=== PATIENT | male | born 1965 | race Caucasian/White ===

== ENCOUNTER 2021-11-28 12:49 | Emergency (ER) | payer SELFPAY ==
[2021-11-28 13:17] VITALS: BP 173/70; PULSE 51; RESP 16; TEMP 36.4; O2SAT 99
[2021-11-28 14:17] LABS: Basophils % 0.2 %; Hematocrit 48.7 % (42.0-52.0); Hemoglobin 15.9 g/dL (11.7-16.6); Lymphocytes # 1.2 10^3/uL (0.8-4.8); Lymphocytes % 10.1 %; Mean Corpuscular HGB Conc 32.6 g/dL (30.0-36.0); Mean Corpuscular Hemoglobin 30.3 pg (28.0-34.0); Mean Corpuscular Volume 92.9 fl (80-94); Mean Platelet Volume 11.8 fL (7.4-10.4); Monocytes # 0.7 10^3/uL (0.2-0.9); Monocytes % 5.4 %; Neutrophils # 10.16 10^3/uL (1.8-7.7); Neutrophils % 84.1 %; Nucleated Red Blood Cells % 0 %; Platelet Count 313 10^3/cmm (130-400); Red Blood Count 5.24 10^6/uL (4.1-5.3); White Blood Count 12.1 10^3/uL (4.0-10.0)
[2021-11-28] MEDS: sodium chloride 0.9% 1,000 ML 999 ML IV (14:27)
[2021-11-28] MEDS: ondansetron 2 mg/ML SDV 2 mL 4 MG IVP (14:35)
[2021-11-28 14:45] LABS: Alanine Aminotransferase 16 U/L (0-41); Albumin Level 4.5 g/dL (3.5-5.2); Alkaline Phosphatase 58 U/L (40-130); Anion Gap 18.8 (5-19); Aspartate Amino Transferase 19 U/L (0-40); Blood Urea Nitrogen 11 mg/dL (6-20); Calcium 9.9 mg/dL (8.5-10.5); Carbon Dioxide 22 mmol/L (22-29); Chloride 101 mmol/L (98-107); Globulin 3.7 g/dL (1.3-4.6); Glomerular Filtration Rate 77.9 mL/min (90-130); Glucose 141 mg/dL (65-115); Lipase 21 U/L (13-60); Osmolality Calculated 288 mOsm/kg (285-295); Potassium 3.8 mmol/L (3.5-5.1); Sodium 138 mmol/L (136-145); Total Bilirubin 1.5 mg/dL (0.15-1.2); Total Protein 8.2 g/dL (6.6-8.7)
[2021-11-28 15:02] VITALS: BP 167/83; PULSE 50; RESP 16; TEMP 36.6; O2SAT 99
--- NOTE | 2021-11-28 15:05 | CTR_ITS ---
PROCEDURE INFORMATION: Exam: CT Abdomen And Pelvis With Contrast Exam date and time: 11/28/2021 3:30 PM Age: 55 years old Clinical indication: Nausea and vomiting; Abdominal pain; Additional info: Pn TECHNIQUE: Imaging protocol: Computed tomography of the abdomen and pelvis with contrast. Radiation optimization: All CT scans at this facility use at least one of these dose optimization techniques: automated exposure control; mA and/or kV adjustment per patient size (includes targeted exams where dose is matched to clinical indication); or iterative reconstruction. Contrast material: OMNI 350; Contrast volume: 80 ml; Contrast route: INTRAVENOUS (IV); COMPARISON: CR XR acute abdomen series [id number] 02/22/2016 9:02 PM RADIATION DOSE METRICS: Total DLP (mGy-cm): 870.23 FINDINGS: Liver: Findings consistent with fatty infiltration of the liver are identified. Gallbladder and bile ducts: Normal. No calcified stones. No ductal dilation. Pancreas: Normal. No ductal dilation. Spleen: Normal. No splenomegaly. Adrenal glands: Normal. No mass. Kidneys and ureters: Normal. No hydronephrosis. Stomach and bowel: Colonic diverticula are present although there are no CT findings to suggest diverticulitis. No bowel obstruction or wall thickening. Appendix: The appendix is visualized and appears normal. Intraperitoneal space: Unremarkable. No free air. No significant fluid collection. Vasculature: Unremarkable. No abdominal aortic aneurysm. Lymph nodes: Unremarkable. No enlarged lymph nodes. Urinary bladder: Unremarkable as visualized. Reproductive: Unremarkable as visualized. Bones/joints: Degenerative change is identified in the spine. There is no evidence for acute fracture or malalignment. Soft tissues: Unremarkable. CT/CT abdomen pelvis w con* [id number] IMPRESSION: There are no acute concerning abnormalities.
[2021-11-28] MEDS: haloperidol inj 5 mg/mL INJ 1 mL IVP (15:12)
[2021-11-28 17:02] VITALS: BP 173/81; PULSE 53; RESP 17; O2SAT 96
[2021-11-28 17:44] LABS: Add Urine Microscopic? YES; Bilirubin Urine Neg (Negative); Blood Urine Neg (Negative); Glucose Urine UA Norm (Normal); Ketones Urine 1+ (Negative); Leukocyte Esterase Urine Negative (Negative); Nitrate Urine Negative (Negative); Protein Urine Trace (Negative); Specific Gravity, Urine 1.005 (1.005-1.030); Urine Appearance Clear (CLEAR); Urine Color Straw (Yellow); Urobilinogen Urine Norm (Negative); pH Urine 5 (5-7)
[2021-11-28 17:45] LABS: Add Urine Culture? No; Bacteria Urine TRACE /hpf
[2021-11-28 18:13] VITALS: BP 153/81; PULSE 56; RESP 16; O2SAT 99
--- NOTE | 2021-11-29 01:05 | ED_ITS ---
HPI - Nausea/Vomiting/Diarrhea General: Chief complaint: Nausea/Vomiting/Diarrhea Stated complaint: possible food poisoning Time Seen by Provider: 11/28/21 13:53 History of Present Illness: 55-year-old male patient presents to the emergency department complaining of nausea vomiting and abdominal cramping. Patient states this started this a.m. Patient states that he believes he has food poisoning. Patient denies any back pain. Patient denies any chest pain or shortness of breath. Patient denies any fever. Patient denies any urinary symptoms. Associated symtoms: Denies anxiety, change in vision, chest pain, diaphoresis, dizziness, dysuria, fatigue, headache(s), malaise, palpitations, syncope or tinnitus Review of Systems Const: Denies: fever(s), chills, body aches, change in appetite, change in weight, fatigue, malaise or diaphoresis Eyes: Denies: change in vision, blurry vision, blind spots, photophobia, eye discomfort, eye discharge, eye redness, floaters or seeing flashes ENMT: Denies: throat pain, uvular edema, enlarged tonsils, odynophagia, hoarseness, mouth pain, swelling of lips/tongue, oral sores, bleeding gums, dental pain, dry mouth, ear or mastoid pain, ear discharge, change in hearing, tinnitus, disequilibrium, nasal discharge, nasal congestion, post nasal drip or sinus pain Card: Denies: chest pain, palpitations, irregular heart rhythm, edema, sw elling of feet/ankles, lightheadedness, syncope, pre-syncope, dyspnea on exertion, orthopnea, leg pain with exertion or acrocyanosis Resp: Denies: dyspnea, productive cough, non-productive cough, wheezing, stridor, pain on inspiration, change in phlegm color, hemoptysis or chest congestion GI: Denies: hematemesis, dysphagia, diarrhea, constipation, GI cramping, change in bowel habits or rectal pain : Denies: flank pain, dysuria, urinary frequency, urinary urgency, urinary hesitancy or hematuria Musc: Denies: neck pain, back pain, extremity pain, extremity swelling, joint pain, joint swelling, joint redness, joint warmth or deformity Skin/Breast: Denies: rash, pruritus, erythema, sores, new lesions, changes in skin color or dry skin Neuro: Denies: headache(s), numbness in extremities, weakness in extremities, sensory changes, lack of coordination, difficulty walking, frequent falls, dizziness, vertigo, confusion, behavioral changes, Slurred speech present, difficulty communicating thoughts or seizure-like activity Psych: Denies: anxiety, depression, suicidal ideation or homicidal ideation Endo: Denies: polyuria, polydipsia, tired all the time, cold intolerance, excessive sweating, flushing, hot flashes or heat intolerance Himanshu/Lymph: Denies: easy bruising, easy bleeding, petechiae, purpura, enlarged lymph nodes or tender lymph nodes All/Imm: Denies: urticaria, throat swelling, tongue swelling, facial swelling, acute wheezing or itchy eyes Physical Exam Const: COMMON NORMALS: no acute distress, patient oriented x3, healthy appearing, alert and well nourished GENERAL APPEARANCE: cooperative, comfortable, well kempt and well developed; not ill appearing ORIENTATION/CONSCIOUSNESS: Yes awake, Yes oriented to person, Yes oriented to place and Yes oriented to time HENMT: COMMON NORMALS: normocephalic, atraumatic, hearing grossly normal bilaterally, external ears normal, EAC's normal, TM's normal bilaterally, Normal external nose present, Normal nasal mucous membranes and turbinates present and moist oral mucous membranes HEAD & SCALP: normal to inspection, normocephalic and atraumatic FACE & SINUS: normal facial exam, sinuses nontender and face symmetric NOSE: Normal external nose present, Normal nares present, Normal nasal mucous membranes and turbinates present, No nasal discharge present and Abnormal external nose present EXTERNAL EAR: Yes external ears normal and Yes mastoids normal EXTERNAL AUDITORY CANAL: EAC's normal TYMPANIC MEMBRANE: TM's normal bilaterally MOUTH: Normal oral and palatal mucosa present, lip normal, tongue normal and Normal salivary glands and ducts present THROAT: no uvular edema Eye: COMMON NORMALS: Equal, round and reactive pupils present, EOMs intact bilaterally, conjunctivae normal, no scleral icterus and no papilledema GENERAL EYE: appearance normal, both eyes and all related structures EYELID: eyelids normal CONJUNCTIVA: Yes conjunctivae normal SCLERA: sclerae normal CORNEA: Yes corneas normal PUPIL: Yes Equal, round and reactive pupils present DIRECT OPHTHALMOSCOPY: Yes no papilledema Neck/C-Spine: COMMON NORMALS: full ROM, no lymphadenopathy, supple, no meningeal signs, no JVD and Thyroid normal GENERAL: Yes normal visual inspection and Yes trachea midline THYROID: Thyroid normal CERVICAL SPINE: Yes cervical ROM normal Lymph: LYMPHATIC: no lymphadenopathy noted and no lymphedema noted Chest: COMMONS NORMALS: normal inspection of the chest and normal palpation of entire chest wall Resp: COMMON NORMALS: normal respiratory effort, No retractions, No use of accessory muscles and clear to auscultation bilaterally EFFORT & INSPECTION: Yes able to speak in complete sentences and Yes symmetric chest movement AUSCULTATION: clear to auscultation bilaterally Cardio: COMMON NORMALS: no JVD, regular rate and regular rhythm RATE: regular rate RHYTHM: regular rhythm GI: COMMON NORMALS: Normal to inspection, nondistended, normoactive bowel sounds present, Soft to palpation, non-tender, No hepatosplenomegaly present, no masses and no bruits INSPECTION: Yes normal to inspection AUSCULTATION: Yes normoactive bowel sounds PALPATION: Yes Soft to palpation and Yes No hepatosplenomegaly present PERCUSSION: normal to percussion RECTAL EXAM: Yes deferred : COMMON NORMALS: Yes no CVA tenderness BLADDER/KIDNEY EXAM: Yes no CVA tenderness Back/Pelvis: COMMON NORMALS: no CVA tenderness, thoracic and lumbar spine normal to inspection, no thoracic nor lumbar tenderness, thoraco-lumbar ROM normal and straight leg raise negative bilaterally THORACIC SPINE/UPPER BACK: Yes normal to inspection LUMBAR SPINE/LOWER BACK: Yes normal to inspection Extremity: COMMON NORMALS: normal to inspection, full ROM and capillary refill normal GENERAL: Yes normal exam except as noted Neuro: COMMON NORMALS: patient oriented x3, CN's II-XII intact bilaterally, moves all extremities, no focal motor deficits, no sensory deficits noted, deep tendon reflexes 2+ bilaterally and gait normal SENSORIUM/ORIENTATION: Yes alert, Yes oriented to person, Yes oriented to place and Yes oriented to time MENINGEAL SIGNS: Yes no meningeal signs CRANIAL NERVES: Yes CN normal except as noted SPEECH: speech normal GAIT: Yes Normal gait present SENSORY EXAM: Yes extremities MOTOR EXAM: 5/5 motor strength present throughout Psych: COMMON NORMALS: mental status grossly normal, Normal thought process present, cooperative, normal affect, speech normal, activity/motor behavior normal, denies hallucinations, denies homicidal ideation and denies suicidal ideation APPEARANCE: Yes grossly normal and Yes well kempt ATTITUDE: Yes calm ACTIVITY/MOTOR BEHAVIOR: Yes appropriate eye contact SPEECH: Yes normal speech THOUGHT PROCESS: Normal thought process present THOUGHT CONTENT: Yes Normal thought content present ATTENTION/CONCENTRATION: Yes attention grossly intact MEMORY/COGNITION: Yes memory grossly intact INSIGHT: Good insight present (Psych) JUDGEMENT: Good judgement present (Psych) Skin: COMMON NORMALS: no rashes or lesions noted, no wounds, turgor normal, no jaundice, no petechiae and no mottling GENERAL SKIN EXAM: no rashes or lesions noted and turgor normal Course Vital Signs: Vital signs: Vital Signs Temperature 97.9 F 11/28/21 15:02 Pulse Rate 56 L 11/28/21 18:13 Respiratory Rate 16 11/28/21 18:13 Blood Pressure 153/81 11/28/21 18:13 Pulse Oximetry 99 11/28/21 18:13 Oxygen Delivery Me thod 11/28/21 17:02 MDM - Nausea/Vomiting/Diarrhea Medical Decision Making Patient is well-appearing nontoxic and in no acute distress.55-year-old male patient presents to the emergency department complaining of nausea vomiting and abdominal cramping. Patient states this started this a.m. Patient states that he believes he has food poisoning. Patient denies any back pain. Patient denies any chest pain or shortness of breath. Patient denies any fever. Patient denies any urinary symptoms. Patient's abdomen is soft and nontender. Patient was given Zofran and Haldol and had resolution of symptoms. Patient was given 1 L of fluids. Patient states he feels much better and would like to go home at this time. I do not feel patient would benefit from any further emergent testing however I did discuss with patient follow-up with primary care physician as well as return precautions to the emergency department Lab Data : 11/28/21 14:11 11/28/21 14:11 Radiology Impressions Abdomen/Pelvis CT 11/28/21 15:05 IMPRESSION: There are no acute concerning abnormalities. Laboratory Results WBC 12.1 10^3/uL (4.0-10.0) H 11/28/21 14:11 RBC 5.24 10^6/uL (4.1-5.3) 11/28/21 14:11 Hgb 15.9 g/dL (11.7-16.6) 11/28/21 14:11 Hct 48.7 % (42.0-52.0) 11/28/21 14:11 MCV 92.9 fl (80-94) 11/28/21 14:11 MCH 30.3 pg (28.0-34.0) 11/28/21 14:11 MCHC 32.6 g/dL (30.0-36.0) 11/28/21 14:11 RDW 13.0 % (12.1-15.1) 11/28/21 14:11 Plt Count 313 10^3/cmm (130-400) 11/28/21 14:11 MPV 11.8 fL (7.4-10.4) H 11/28/21 14:11 Neut % (Auto) 84.1 % 11/28/21 14:11 Lymph % (Auto) 10.1 % 11/28/21 14:11 [place] % (Auto) 5.4 % 11/28/21 14:11 Eos % (Auto) 0.0 % 11/28/21 14:11 Baso % (Auto) 0.2 % 11/28/21 14:11 Neut # (Auto) 10.16 10^3/uL (1.8-7.7) H 11/28/21 14:11 Lymph # (Auto) 1.2 10^3/uL (0.8-4.8) 11/28/21 14:11 [place] # (Auto) 0.7 10^3/uL (0.2-0.9) 11/28/21 14:11 Eos # (Auto) 0.0 10^3/uL (0.0-0.8) 11/28/21 14:11 Baso # (Auto) 0.0 10^3/uL (0.0-0.1) 11/28/21 14:11 Nucleated RBC % (auto) 0 % 11/28/21 14:11 Nucleated RBCs # 0.0 /100WBC 11/28/21 14:11 Sodium 138 mmol/L (136-145) 11/28/21 14:11 Potassium 3.8 mmol/L (3.5-5.1) 11/28/21 14:11 Chloride 101 mmol/L (98-107) 11/28/21 14:11 Carbon Dioxide 22 mmol/L (22-29) 11/28/21 14:11 Anion Gap 18.8 (5-19) 11/28/21 14:11 BUN 11 mg/dL (6-20) 11/28/21 14:11 Creatinine 1.0 mg/dL (0.7-1.2) 11/28/21 14:11 GFR Calculation 77.9 mL/min (90-130) L 11/28/21 14:11 Glucose 141 mg/dL (65-115) H 11/28/21 14:11 Calculated Osmolality 288 mOsm/kg (285-295) 11/28/21 14:11 Calcium 9.9 mg/dL (8.5-10.5) 11/28/21 14:11 Total Bilirubin 1.5 mg/dL (0.15-1.2) H 11/28/21 14:11 AST 19 U/L (0-40) 11/28/21 14:11 ALT 16 U/L (0-41) 11/28/21 14:11 Alkaline Phosphatase 58 U/L (40-130) 11/28/21 14:11 Total Protein 8.2 g/dL (6.6-8.7) 11/28/21 14:11 Albumin 4.5 g/dL (3.5-5.2) 11/28/21 14:11 Globulin 3.7 g/dL (1.3-4.6) 11/28/21 14:11 Lipase 21 U/L (13-60) 11/28/21 14:11 Urine Color Straw (Yellow) 11/28/21 16:59 Urine Appearance Clear (CLEAR) 11/28/21 16:59 Urine pH 5 (5-7) 11/28/21 16:59 Ur Specific [place] 1.005 (1.005-1.030) 11/28/21 16:59 Urine Protein Trace (Negative) 11/28/21 16:59 Urine Glucose (UA) Norm (Normal) 11/28/21 16:59 Urine Ketones 1+ (Negative) H 11/28/21 16:59 Urine Blood Neg (Negative) 11/28/21 16:59 Urine Nitrate Negative (Negative) 11/28/21 16:59 Urine Bilirubin Neg (Negative) 11/28/21 16:59 Urine Urobilinogen Norm mg/dL (Negative) 11/28/21 16:59 Ur Leukocyte Esterase Negative (Negative) 11/28/21 16:59 Urine RBC None /hpf (0-2) 11/28/21 16:59 Urine WBC None /hpf (0-5) 11/28/21 16:59 Ur Squamous Epith Cells None /hpf (0-5) 11/28/21 16:59 Amorphous Sediment Not Reportable 11/28/21 16:59 Urine Bacteria Trace /hpf (NONE) 11/28/21 16:59 Discharge Plan Discharge Patient Disposition: Home Clinical Impression: Gastroenteritis Condition: Stable Prescriptions: New ondansetron 4 mg tablet,disintegrating 4 mg PO DAILY PRN (Reason: nausea and vomiting) 4 Days Qty: 14 0RF Discharge Orders: Discharge ED (Routine); Ordered 11/28/21 Ordered By: Kiana Kline Referrals: Julien Alcaraz MD [Primary Care Provider] - Discharge Diet: Advance as tolerated Discharge Activity: Increase activity as tolerated Patient Instructions: Opioid Safety, Pain Management Activity Restrictions/Additional Instructions: Please take meds as directed Return to ER with any worsening of symptoms Coding Level of Care Code ED Sales And Marketing Assistant for Maylin Min
== END 2021-11-28 18:14 | disposition home or self-care (01) ==
PROVIDERS: Emergency Medicine; Emergency Provider Registered Nurse; PCP Preventive Medicine Occupational Medicine
DX: K52.9 Noninfective gastroenteritis and colitis, unspecified (principal)
CPT/HCPCS: 36415; 74177; 80053; 81001; 83690; 85025; 96361; 96374; 96375; 99285; J1630; J2405; J7030; Q9967

== ENCOUNTER 2021-12-01 01:47 | Emergency (ER) | payer SELFPAY ==
[2021-12-01 02:13] VITALS: BP 98/69; PULSE 83; RESP 18; TEMP 36.3; O2SAT 96; BMI 29.8
[2021-12-01 03:52] VITALS: BP 179/102; PULSE 58; RESP 17; O2SAT 98
--- NOTE | 2021-12-01 03:59 | XRR_ITS ---
PROCEDURE INFORMATION: Exam: XR Abdomen Exam date and time: 12/01/2021 4:04 AM Age: 56 years old Clinical indication: Nausea and vomiting; Patient HX: C/O persistent n/v x 5 days; Additional info: Nausea vomiting diarrhea TECHNIQUE: Imaging protocol: Radiologic exam of the abdomen. Views: Frontal supine view of the abdomen. 1 View. COMPARISON: CT abdomen pelvis w con* [id number] 11/28/2021 3:30 PM FINDINGS: Gastrointestinal tract: No acute abnormality. No significant large or small bowel distention. Bones/joints: No acute osseous abnormality. XR/XR KUB portable [id number] IMPRESSION: No acute abnormality demonstrated.
[2021-12-01] MEDS: ondansetron 2 mg/ML SDV 2 mL 4 MG IVP (04:25)
[2021-12-01] MEDS: lactated ringers 1,000 ML 999 ML IV (04:25)
[2021-12-01 04:29] LABS: Basophils % 0.3 %; Eosinophils % 0.3 %; Hematocrit 47.9 % (42.0-52.0); Hemoglobin 17.1 g/dL (11.7-16.6); Lymphocytes # 2.2 10^3/uL (0.8-4.8); Lymphocytes % 18.2 %; Mean Corpuscular HGB Conc 35.7 g/dL (30.0-36.0); Mean Corpuscular Hemoglobin 31.1 pg (28.0-34.0); Mean Corpuscular Volume 87.1 fl (80-94); Mean Platelet Volume 11.8 fL (7.4-10.4); Monocytes # 1.4 10^3/uL (0.2-0.9); Monocytes % 12.2 %; Neutrophils # 8.15 10^3/uL (1.8-7.7); Neutrophils % 68.7 %; Nucleated Red Blood Cells % 0 %; Platelet Count 303 10^3/cmm (130-400); Red Cell Distribution Width 12.4 % (12.1-15.1); White Blood Count 11.8 10^3/uL (4.0-10.0)
[2021-12-01 04:55] LABS: Alanine Aminotransferase 15 U/L (0-41); Albumin Level 4.5 g/dL (3.5-5.2); Alkaline Phosphatase 50 U/L (40-130); Anion Gap 18.5 (5-19); Aspartate Amino Transferase 19 U/L (0-40); Blood Urea Nitrogen 15 mg/dL (6-20); Calcium 9.7 mg/dL (8.5-10.5); Carbon Dioxide 24 mmol/L (22-29); Chloride 96 mmol/L (98-107); Globulin 3.5 g/dL (1.3-4.6); Glomerular Filtration Rate 77.6 mL/min (90-130); Glucose 114 mg/dL (65-115); Lipase 21 U/L (13-60); Osmolality Calculated 282 mOsm/kg (285-295); Potassium 3.5 mmol/L (3.5-5.1); Sodium 135 mmol/L (136-145); Total Bilirubin 2.7 mg/dL (0.15-1.2)
--- NOTE | 2021-12-01 05:03 | ED_ITS ---
HPI - Nausea/Vomiting/Diarrhea General: Chief complaint: Nausea/Vomiting/Diarrhea Stated complaint: N/V Time Seen by Provider: 12/01/21 03:55 History of Present Illness: 56-year-old male presents with nausea, vomiting . He reports has been going on for about 4 to 5 days and is having hard time keeping down. Patient was prescribed nausea medication but reports that he has been unable afford it because he does not get paid until tomorrow. Patient denies any cough, fever, chills. Patient does report that smokes marijuana frequently. Associated nausea: Yes Associated symtoms: Reports dysuria and nausea; Denies anxiety, chest pain, dizziness, headache(s) or palpitations Review of Systems Const: Denies: fever(s) or chills Card: Denies: chest pain or palpitations Resp: Denies: dyspnea or productive cough GI: Reports: nausea and vomiting; Denies: abdominal pain or diarrhea : Reports: difficulty urinating and dysuria Musc: Denies: back pain or extremity pain Skin/Breast: Denies: rash Neuro: Denies: headache(s) or dizziness Psych: Denies: anxiety or depression Physical Exam Const: COMMON NORMALS: no acute distress, patient oriented x3 and alert Resp: COMMON NORMALS: normal respiratory effort, No use of accessory muscles and clear to auscultation bilaterally AUSCULTATION: clear to auscultation bilaterally Cardio: COMMON NORMALS: regular rate and regular rhythm RATE: regular rate RHYTHM: regular rhythm GI: COMMON NORMALS: Soft to palpation PALPATION: Yes Soft to palpation and Yes Tenderness to palpation present (GI) (Mild diffuse) : COMMON NORMALS: Yes no CVA tenderness BLADDER/KIDNEY EXAM: Yes no CVA tenderness Back/Pelvis: COMMON NORMALS: no CVA tenderness Extremity: COMMON NORMALS: normal to inspection, full ROM and capillary refill normal Neuro: COMMON NORMALS: patient oriented x3, moves all extremities and no focal motor deficits SENSORIUM/ORIENTATION: Yes alert Psych: COMMON NORMALS: mental status grossly normal, cooperative and normal affect Skin: COMMON NORMALS: no rashes or lesions noted and turgor normal GENERAL SKIN EXAM: no rashes or lesions noted and turgor normal Course Vital Signs: Vital signs: Vital Signs Temperature 97.3 F L 12/01/21 02:13 Pulse Rate 58 L 12/01/21 03:52 Respiratory Rate 17 12/01/21 03:52 Blood Pressure 179/102 12/01/21 03:52 Pulse Oximetry 98 12/01/21 03:52 Oxygen Delivery Me thod 12/01/21 03:52 MDM - Nausea/Vomiting/Diarrhea Medical Decision Making Patient with no episodes of vomiting while in the ER. Patient's labs and physical exam did not show any signs of significant dehydration. Patient has a prescription for Zofran already prescribed. Patient stable and discharged home. Lab Data : 12/01/21 04:24 12/01/21 04:24 Laboratory Results WBC 11.8 10^3/uL (4.0-10.0) H 12/01/21 04:24 RBC 5.50 10^6/uL (4.1-5.3) H 12/01/21 04:24 Hgb 17.1 g/dL (11.7-16.6) H 12/01/21 04:24 Hct 47.9 % (42.0-52.0) 12/01/21 04:24 MCV 87.1 fl (80-94) 12/01/21 04:24 MCH 31.1 pg (28.0-34.0) 12/01/21 04:24 MCHC 35.7 g/dL (30.0-36.0) 12/01/21 04:24 RDW 12.4 % (12.1-15.1) 12/01/21 04:24 Plt Count 303 10^3/cmm (130-400) 12/01/21 04:24 MPV 11.8 fL (7.4-10.4) H 12/01/21 04:24 Neut % (Auto) 68.7 % 12/01/21 04:24 Lymph % (Auto) 18.2 % 12/01/21 04:24 [place] % (Auto) 12.2 % 12/01/21 04:24 Eos % (Auto) 0.3 % 12/01/21 04:24 Baso % (Auto) 0.3 % 12/01/21 04:24 Neut # (Auto) 8.15 10^3/uL (1.8-7.7) H 12/01/21 04:24 Lymph # (Auto) 2.2 10^3/uL (0.8-4.8) 12/01/21 04:24 [place] # (Auto) 1.4 10^3/uL (0.2-0.9) H 12/01/21 04:24 Eos # (Auto) 0.0 10^3/uL (0.0-0.8) 12/01/21 04:24 Baso # (Auto) 0.0 10^3/uL (0.0-0.1) 12/01/21 04:24 Nucleated RBC % (auto) 0 % 12/01/21 04:24 Nucleated RBCs # 0.0 /100WBC 12/01/21 04:24 Sodium 135 mmol/L (136-145) L 12/01/21 04:24 Potassium 3.5 mmol/L (3.5-5.1) 12/01/21 04:24 Chloride 96 mmol/L (98-107) L 12/01/21 04:24 Carbon Dioxide 24 mmol/L (22-29) 12/01/21 04:24 Anion Gap 18.5 (5-19) 12/01/21 04:24 BUN 15 mg/dL (6-20) 12/01/21 04:24 Creatinine 1.0 mg/dL (0.7-1.2) 12/01/21 04:24 GFR Calculation 77.6 mL/min (90-130) L 12/01/21 04:24 Glucose 114 mg/dL (65-115) 12/01/21 04:24 Calculated Osmolality 282 mOsm/kg (285-295) L 12/01/21 04:24 Calcium 9.7 mg/dL (8.5-10.5) 12/01/21 04:24 Total Bilirubin 2.7 mg/dL (0.15-1.2) H 12/01/21 04:24 AST 19 U/L (0-40) 12/01/21 04:24 ALT 15 U/L (0-41) 12/01/21 04:24 Alkaline Phosphatase 50 U/L (40-130) 12/01/21 04:24 Total Protein 8.0 g/dL (6.6-8.7) 12/01/21 04:24 Albumin 4.5 g/dL (3.5-5.2) 12/01/21 04:24 Globulin 3.5 g/dL (1.3-4.6) 12/01/21 04:24 Lipase 21 U/L (13-60) 12/01/21 04:24 Discharge Plan Discharge Patient Disposition: Home Clinical Impression: Nausea and vomiting Condition: Stable Prescriptions: No Action ondansetron 4 mg tablet,disintegrating 4 mg PO DAILY PRN (Reason: nausea and vomiting) 4 Days Qty: 14 0RF Discharge Orders: Discharge ED (Routine); Ordered 12/01/21 Ordered By: Chip Medina Discharge Diet: Advance as tolerated and Clear Liquid Discharge Activity: Increase activity as tolerated Patient Instructions: Opioid Safety, Pain Management, Clear Liquid Diet (ED), Acute Nausea and Vomiting (ED) Activity Restrictions/Additional Instructions: Warm shower warm heating pad to help with your nausea Clear liquid diet, advance as tolerated Please fill your Zofran prescription to soon as possible Coding Level of Care Code ED Insulation Board Head Saw Operator for Maylin Fwd Exam Comprehensive
[2021-12-01] MEDS: promethazine 25 mg/mL SDV 1 mL 12.5 MG IM (05:29)
== END 2021-12-01 05:41 | disposition home or self-care (01) ==
PROVIDERS: Emergency Provider Student in an Organized Health Care Education/Training Program
DX: R11.2 Nausea with vomiting, unspecified (principal)
CPT/HCPCS: 74018; 80053; 83690; 85025; 96372; 96374; 99284; J2405; J2550

== ENCOUNTER 2022-07-08 03:56 | Emergency (ER) | payer SELFPAY ==
--- NOTE | 2022-07-08 04:04 | XRR_ITS ---
PROCEDURE INFORMATION: Exam: XR Chest Exam date and time: 07/08/2022 4:08 AM Age: 56 years old Clinical indication: Cough and shortness of breath; Patient HX: Non productive cough with SOB. TECHNIQUE: Imaging protocol: Radiologic exam of the chest. Views: 1 view. COMPARISON: CR XR KUB portable [id number] 12/01/2021 4:04 AM FINDINGS: Lungs: There are mildly increased peribronchial markings present. Subtle increased interstitial opacities are present in the mid lower hemithoraces. These findings could represent mild bilateral bronchitis and bilateral interstitial pneumonitis. Pleural spaces: Unremarkable. No pleural effusion. No pneumothorax. Heart/Mediastinum: Unremarkable. No cardiomegaly. Bones/joints: Unremarkable. XR/XR chest 1V portable [id number] IMPRESSION: Probable mild bilateral bronchitis and bilateral basilar interstitial pneumonitis.
[2022-07-08 04:05] VITALS: BP 141/93; PULSE 75; RESP 16; TEMP 36.9; O2SAT 97; BMI 30.7
--- NOTE | 2022-07-08 04:11 | ED_ITS ---
HPI - URI/Sore Throat General: Chief Complaint: Upper Respiratory Infection Stated Complaint: sore throat, flu symptoms,sob Time Seen by Provider: 07/08/22 03:58 Source: patient Mode of arrival: ambulatory Limitations: no limitations History of Present Illness: 56-year-old male who states for the last 2 days he has had cough congestion along with some body aches. He states he had chills as well denies any actual fever he is also had a sore throat he states he does get seasonal allergies he states his cough has been nonproductive. He is resting comfortably he has had some episodes of vomiting. Associated symptoms: Reports chills, nausea and vomiting; Deny abdominal pain, chest pain, diarrhea, fever(s) or headache(s) Review of Systems Const: Reports: chills and body aches; Denies: fever(s) Eyes: Denies: eye discomfort ENMT: Reports: throat pain; Denies: dental pain Card: Denies: chest pain Resp: Reports: non-productive cough; Denies: dyspnea GI: Reports: nausea and vomiting; Denies: abdominal pain or diarrhea : Denies: dysuria Musc: Denies: neck pain or back pain Skin/Breast: Denies: rash Neuro: Denies: headache(s) All/Imm: Denies: urticaria PFSH ED PFSH: Medical History (Updated 07/08/22 @ 04:58 by Tiffanie Lin MD) No pertinent past medical history Social History (Updated 07/08/22 @ 04:12 by Tiffanie Lin MD) Smoking and tobacco status: former smoker Physical Exam Const: COMMON NORMALS: no acute distress, patient oriented x3 and healthy appearing HENMT: COMMON NORMALS: normocephalic and atraumatic HEAD & SCALP: normocephalic and atraumatic THROAT: posterior oropharynx normal Eye: COMMON NORMALS: conjunctivae normal CONJUNCTIVA: Yes conjunctivae normal Neck/C-Spine: COMMON NORMALS: full ROM and supple Chest: COMMONS NORMALS: normal inspection of the chest and normal palpation of entire chest wall Resp: COMMON NORMALS: normal respiratory effort, No retractions, No use of accessory muscles and clear to auscultation bilaterally AUSCULTATION: clear to auscultation bilaterally Cardio: COMMON NORMALS: regular rate, regular rhythm and No murmurs present (Cardio) RATE: regular rate RHYTHM: regular rhythm GI: COMMON NORMALS: Normal to inspection, nondistended, normoactive bowel sounds present, Soft to palpation, non-tender and no masses PALPATION: Yes Soft to palpation Extremity: COMMON NORMALS: normal to inspection and full ROM Neuro: COMMON NORMALS: patient oriented x3, moves all extremities and no focal motor deficits Psych: COMMON NORMALS: mental status grossly normal, Normal thought process present and cooperative THOUGHT PROCESS: Normal thought process present Skin: COMMON NORMALS: no rashes or lesions noted and no wounds GENERAL SKIN EXAM: no rashes or lesions noted Course Vital Signs: Vital signs: Vital Signs Temperature 98.4 F 07/08/22 04:05 Pulse Rate 75 07/08/22 04:05 Respiratory Rate 16 07/08/22 04:05 Blood Pressure 141/93 07/08/22 04:05 Pulse Oximetry 97 07/08/22 04:05 Oxygen Delivery Me thod Room Air 07/08/22 04:05 MDM - URI/Sore Throat Medical Decision Making Patient presents with cough congestion x-ray shows a possible pneumonia likely bronchitis he has some mild wheezing here did give him an inhaler here we will discharge him with a prescription for inhaler along with Decadron and doxycycline he is to follow-up with PCP and return if worse he has no signs of severe pneumonia. Differential Diagnosis Likely upper respiratory infection and bronchitis; Unlikely sinusitis, influenza or pharyngitis Medical Records I reviewed the patient's medical records. Lab Data 07/08/22 04:27 07/08/22 04:27 Radiology Impressions Chest X-Ray 07/08/22 04:04 IMPRESSION: Probable mild bilateral bronchitis and bilateral basilar interstitial pneumonitis. Laboratory Results WBC 8.3 10^3/uL (4.0-10.0) 07/08/22 04:27 RBC 4.71 10^6/uL (4.1-5.3) 07/08/22 04:27 Hgb 14.2 g/dL (11.7-16.6) 07/08/22 04:27 Hct 43.1 % (42.0-52.0) 07/08/22 04:27 MCV 91.5 fl (80-94) 07/08/22 04:27 MCH 30.1 pg (28.0-34.0) 07/08/22 04:27 MCHC 32.9 g/dL (30.0-36.0) 07/08/22 04: RDW 12.8 % (12.1-15.1) 07/08/22 04:27 Plt Count 270 10^3/cmm (130-400) 07/08/22 04:27 MPV 11.2 fL (7.4-10.4) H 07/08/22 04:27 Neut % (Auto) 71.8 % 07/08/22 04:27 Lymph % (Auto) 12.8 % 07/08/22 04:27 [place] % (Auto) 11.5 % 07/08/22 04:27 Eos % (Auto) 3.1 % 07/08/22 04:27 Baso % (Auto) 0.6 % 07/08/22 04: Neut # (Auto) 5.95 10^3/uL (1.8-7.7) 07/08/22 04: Lymph # (Auto) 1.1 10^3/uL (0.8-4.8) 07/08/22 04:27 [place] # (Auto) 1.0 10^3/uL (0.2-0.9) H 07/08/22 04:27 Eos # (Auto) 0.3 10^3/uL (0.0-0.8) 07/08/22 04:27 Baso # (Auto) 0.1 10^3/uL (0.0-0.1) 07/08/22 04: Nucleated RBC % (auto) 0 % 07/08/22 04: Nucleated RBCs # 0.0 /100WBC 07/08/22 04:27 Sodium 136 mmol/L (136-145) 07/08/22 04:27 Potassium 4.5 mmol/L (3.5-5.1) 07/08/22 04:27 Chloride 101 mmol/L (98-107) 07/08/22 04: Carbon Dioxide 24 mmol/L (22-29) 07/08/22 04:27 Anion Gap 15.5 (5-19) 07/08/22 04:27 BUN 10 mg/dL (6-20) 07/08/22 04:27 Creatinine 1.0 mg/dL (0.7-1.2) 07/08/22 04:27 GFR Calculation 77.6 mL/min (90-130) L 07/08/22 04:27 Glucose 94 mg/dL (65-115) 07/08/22 04:27 Calculated Osmolality 281 mOsm/kg (285-295) L 07/08/22 04:27 Calcium 9.1 mg/dL (8.5-10.5) 07/08/22 04:27 Total Bilirubin 0.9 mg/dL (0.15-1.2) 07/08/22 04:27 AST 21 U/L (0-40) 07/08/22 04:27 ALT 15 U/L (0-41) 07/08/22 04:27 Alkaline Phosphatase 53 U/L (40-130) 07/08/22 04:27 Total Protein 7.0 g/dL (6.6-8.7) 07/08/22 04:27 Albumin 4.2 g/dL (3.5-5.2) 07/08/22 04:27 Globulin 2.8 g/dL (1.3-4.6) 07/08/22 04:27 Influenza Type A Ag negative (Negative) 07/08/22 04:03 Influenza Type B Ag negative (Negative) 07/08/22 04:03 SARS-CoV-2 Ag (Rapid) negative (Negative) 07/08/22 04:03 Discharge Plan Discharge Patient Disposition: Home Clinical Impression: Bronchitis Prescriptions: New albuterol sulfate 90 mcg/actuation HFA aerosol inhaler 2 inh INHALATION Q6H PRN (Reason: shortness of breath or wheezing) Qty: 8 0RF doxycycline hyclate 100 mg tablet 100 mg PO BID 7 Days Qty: 14 0RF Discharge Orders: Discharge ED (Routine); Ordered 07/08/22 Ordered By: Tiffanie Lin Discharge Diet: Advance as tolerated Discharge Activity: Resume usual activity Patient Instructions: Bronchitis (Acute) - Adult Stand Alone Forms: Work/School Release Coding Level of Care Code ED Senior Director [employer] for Maylin Min
[2022-07-08] MEDS: sodium chloride 0.9% 1,000 ML 999 ML IV (04:23)
[2022-07-08] MEDS: dexamethasone 10 mg/mL INJ IVP (04:23)
[2022-07-08] MEDS: ketorolac 30 mg/mL INJ 15 MG IVP (04:25)
[2022-07-08 04:27] LABS: Influenza A by IFA negative (Negative); Influenza B by IFA negative (Negative); SARS Covid-2 Antigen negative (Negative)
[2022-07-08 04:33] LABS: Basophils # 0.1 10^3/uL (0.0-0.1); Basophils % 0.6 %; Eosinophils # 0.3 10^3/uL (0.0-0.8); Eosinophils % 3.1 %; Hematocrit 43.1 % (42.0-52.0); Hemoglobin 14.2 g/dL (11.7-16.6); Lymphocytes # 1.1 10^3/uL (0.8-4.8); Lymphocytes % 12.8 %; Mean Corpuscular HGB Conc 32.9 g/dL (30.0-36.0); Mean Corpuscular Hemoglobin 30.1 pg (28.0-34.0); Mean Corpuscular Volume 91.5 fl (80-94); Mean Platelet Volume 11.2 fL (7.4-10.4); Monocytes % 11.5 %; Neutrophils # 5.95 10^3/uL (1.8-7.7); Neutrophils % 71.8 %; Nucleated Red Blood Cells % 0 %; Platelet Count 270 10^3/cmm (130-400); Red Blood Count 4.71 10^6/uL (4.1-5.3); Red Cell Distribution Width 12.8 % (12.1-15.1); White Blood Count 8.3 10^3/uL (4.0-10.0)
[2022-07-08 04:45] LABS: Alanine Aminotransferase 15 U/L (0-41); Albumin Level 4.2 g/dL (3.5-5.2); Alkaline Phosphatase 53 U/L (40-130); Anion Gap 15.5 (5-19); Aspartate Amino Transferase 21 U/L (0-40); Blood Urea Nitrogen 10 mg/dL (6-20); Calcium 9.1 mg/dL (8.5-10.5); Carbon Dioxide 24 mmol/L (22-29); Chloride 101 mmol/L (98-107); Globulin 2.8 g/dL (1.3-4.6); Glomerular Filtration Rate 77.6 mL/min (90-130); Glucose 94 mg/dL (65-115); Osmolality Calculated 281 mOsm/kg (285-295); Potassium 4.5 mmol/L (3.5-5.1); Sodium 136 mmol/L (136-145); Total Bilirubin 0.9 mg/dL (0.15-1.2)
[2022-07-08] MEDS: albuterol 8 gm MDI 2 PUFF INHALATION (05:10)
[2022-07-08 05:11] VITALS: PULSE 78; RESP 20; O2SAT 96
[2022-07-08] MEDS: doxycycline 100 mg Tablet PO (05:20)
[2022-07-08 05:30] VITALS: BP 109/51; RESP 18
--- NOTE | 2022-07-12 13:02 | DCPLANNER ---
senior sales manager called patient due to no primary care physician - no answer at this time.
== END 2022-07-08 05:25 | disposition home or self-care (01) ==
PROVIDERS: Emergency Provider Emergency Medicine
DX: J40 Bronchitis, not specified as acute or chronic (principal); Z20.822 Contact with and (suspected) exposure to COVID-19; Z87.891 Personal history of nicotine dependence
CPT/HCPCS: 71045; 80053; 85025; 87426; 87804; 94640; 96361; 96374; 96375; 99284; J1100; J1885; J3535; J7030

== ENCOUNTER 2024-02-23 14:37 | Emergency (ER) | payer SELFPAY ==
[2024-02-23 14:43] VITALS: BP 193/86; PULSE 52; RESP 17; TEMP 36.4; O2SAT 98; BMI 32.1
[2024-02-23] MEDS: ondansetron 2 mg/ML SDV 2 mL 8 MG IVP ×2 (15:58→17:15)
--- NOTE | 2024-02-23 15:58 | ED_ITS ---
HPI - Nausea/Vomiting/Diarrhea 2 General: Chief complaint: Nausea/Vomiting/Diarrhea Stated complaint: n,v, fever abd pain, Time Seen by Provider: 02/23/24 14:41 History of Present Illness: 58-year-old man who presents emergency r oom with vomiting. He says he feels queasy and nauseous but has not Anything down for few days now. He does not have any focal abdominal pain. No diarrhea. No chest pain. No shortness of breath. No altered mental status. No headache. Related Data Previous Rx's Medication Instructions Recorded albuterol sulfate 90 mcg/actuation 2 inh inhalation Q6H PRN shortness 07/08/22 aerosol inhaler of breath or wheezing #8 grams ondansetron 8 mg disintegrating 8 mg PO Q6H #14 tabs 02/23/24 tablet promethazine 25 mg rectal 25 mg [place] Q6H PRN nausea and 02/23/24 suppository vomiting #12 ea Allergies Allergy/AdvReac Type Severity Reaction Status Date / Time No Known Allergies Allergy Verified 07/08/22 04:06 Review of Systems 2 Narrative: Constitutional symptoms: Negative except as documented in HPI. Skin symptoms: Negative except as documented in HPI. Eye symptoms: Negative except as documented in HPI. ENMT symptoms: Negative except as documented in HPI. Respiratory symptoms: Negative except as documented in HPI. Cardiovascular symptoms: Negative except as documented in HPI. Gastrointestinal symptoms: Negative except as documented in HPI. Genitourinary symptoms: Negative except as documented in HPI. Musculoskeletal symptoms: Negative except as documented in HPI. Neurologic symptoms: Negative except as documented in HPI. Psychiatric symptoms: Negative except as documented in HPI. Endocrine symptoms: Negative except as documented in HPI. PFSH ED 2 PFSH: Medical History (Updated 02/23/24 @ 16:48 by Malorie Dunham MD) No pertinent past medical history Social History (Updated 07/08/22 @ 04:12 by Tiffanie Lin MD) Smoking and tobacco/nicotine status: former use of tobacco/nicotine Physical Exam 2 Narrative: EXAM NARRATIVE: General: Alert, no acute distress. Skin: Warm, dry. Head: Normocephalic, atraumatic. Neck: Supple, trachea midline. Eye: Extraocular movements are intact. Ears, nose, mouth and throat: mucosa moist. Cardiovascular: Regular, Normal peripheral perfusion. Respiratory: Lungs are clear to auscultation, respirations are non-labored, breath sounds are equal, Symmetrical chest wall expansion. Gastrointestinal: Soft, Nontender, Non distended Musculoskeletal: Normal ROM, no deformity. Neurological: Alert and oriented, No focal neurological deficit observed. Psychiatric: Cooperative, appropriate mood & affect. Course 2 Vital Signs: Vital signs: Vital Signs Temperature 97.6 F 02/23/24 14:43 Pulse Rate 49 L 02/23/24 16:18 Respiratory Rate 16 02/23/24 16:18 Blood Pressure 160/67 02/23/24 16:18 Pulse Oximetry 96 02/23/24 16:18 Oxygen Delivery Me thod Room Air 02/23/24 16:18 MDM - Nausea/Vomiting/Diarrhea Medical Decision Making Medical decision making: Differential diagnosis for this patient with nausea and vomiting including but not limited to and based on the above HPI, review of systems and physical exam: Urinary tract infection. Appendicitis. Cholecystis. colitis. small bowel obstruction. crohn's flare. pancreatitis. gastritis. peptic ulcer. cyclic vomiting. Viral illness. Influenza. COVID. - Workup - labwork and imaging ordered to evaluate, rule in and rule out above pathologies. Lab Review: Laboratory results were reviewed and interpreted by myself the emergency room physician. Lab work is fairly unremarkable. Mild leukocytosis. No anemia. No renal failure. Lipase is negative. Urinalysis is negative for infection. I reviewed the patient's medical record. Reexamination: Patient has improved some. Tolerating some fluids. Assessment and plan: Nausea and vomiting. ?IV Zofran. Slight improvement so gave more Zofran and some Compazine and Benadryl. - Discharged home - Discussed plan with patient. Answered any questions. - Evaluation and treatment of this problem were appropriate in the emergency setting. Lab Data 02/23/24 16:00 02/23/24 16:00 Laboratory Results WBC 13.49 10^3/uL (3.29-11.43) H 02/23/24 16:00 RBC 4.82 10^6/uL (3.85-5.65) 02/23/24 16:00 Hgb 14.80 g/dL (11.27-16.99) 02/23/24 16:00 Hct 43.7 % (37-53) 02/23/24 16:00 MCV 90.7 fl (82-101) 02/23/24 16:00 MCH 30.7 pg (27-33) 02/23/24 16:00 MCHC 33.9 g/dL (30-55) 02/23/24 16:00 RDW 13.6 % (12.1-15.1) 02/23/24 16:00 Plt Count 333 10^3/cmm (157-399) 02/23/24 16:00 MPV 11.4 fL (7.4-10.4) H 02/23/24 16:00 Neut % (Auto) 84.6 % 02/23/24 16:00 Lymph % (Auto) 7.9 % 02/23/24 16:00 [place] % (Auto) 6.9 % 02/23/24 16:00 Eos % (Auto) 0.0 % 02/23/24 16:00 Baso % (Auto) 0.1 % 02/23/24 16:00 Neut # (Auto) 11.41 10^3/uL (1.8-7.7) H 02/23/24 16:00 Lymph # (Auto) 1.1 10^3/uL (0.8-4.8) 02/23/24 16:00 [place] # (Auto) 0.9 10^3/uL (0.2-0.9) 02/23/24 16:00 Eos # (Auto) 0.0 10^3/uL (0.0-0.8) 02/23/24 16:00 Baso # (Auto) 0.0 10^3/uL (0.0-0.1) 02/23/24 16:00 Nucleated RBC % (auto) 0 % 02/23/24 16:00 Nucleated RBCs # 0.0 /100WBC 02/23/24 16:00 Sodium 136 mmol/L (136-145) 02/23/24 16:00 Potassium 3.4 mmol/L (3.5-5.1) L 02/23/24 16:00 Chloride 100 mmol/L (98-107) 02/23/24 16:00 Carbon Dioxide 20 mmol/L (22-29) L 02/23/24 16:00 Anion Gap 19.4 (5-19) H 02/23/24 16:00 BUN 12 mg/dL (6-20) 02/23/24 16:00 Creatinine 0.9 mg/dL (0.7-1.2) 02/23/24 16:00 GFR Calculation 87.0 mL/min (90-130) L 02/23/24 16:00 Glucose 143 mg/dL (65-115) H 02/23/24 16:00 Calculated Osmolality 284 mOsm/kg (285-295) L 02/23/24 16:00 Calcium 10.4 mg/dL (8.5-10.5) 02/23/24 16:00 Total Bilirubin 1.5 mg/dL (0.15-1.2) H 02/23/24 16:00 AST 19 U/L (0-40) 02/23/24 16:00 ALT 17 U/L (0-41) 02/23/24 16:00 Alkaline Phosphatase 51 U/L (40-130) 02/23/24 16:00 Total Protein 7.4 g/dL (6.6-8.7) 02/23/24 16:00 Albumin 4.6 g/dL (3.5-5.2) 02/23/24 16:00 Globulin 2.8 g/dL (1.3-4.6) 02/23/24 16:00 Lipase 43 U/L (13-60) 02/23/24 16:00 Urine Color Yellow (Yellow) 02/23/24 16:14 Urine Appearance Clear (CLEAR) 02/23/24 16:14 Urine pH 8.0 (5-7) A 02/23/24 16:14 Ur Specific [place] 1.027 (1.005-1.030) 02/23/24 16:14 Urine Protein 2+ (Negative) A 02/23/24 16:14 Urine Glucose (UA) Trace (Normal) H 02/23/24 16:14 Urine Ketones 2+ (Negative) H 02/23/24 16:14 Urine Blood Negative (Negative) 02/23/24 16:14 Urine Nitrate Negative (Negative) 02/23/24 16:14 Urine Bilirubin Negative (Negative) 02/23/24 16:14 Urine Urobilinogen 1.0 mg/dL (Negative) 02/23/24 16:14 Ur Leukocyte Esterase Negative (Negative) 02/23/24 16:14 Urine RBC 0-2 /hpf (0-2) 02/23/24 16:14 Urine WBC 0-5 /hpf (0-5) 02/23/24 16:14 Ur Squamous Epith Cells 0-5 /hpf (0-5) 02/23/24 16:14 Amorphous Sediment Not Reportable 02/23/24 16:14 Urine Bacteria None seen /hpf (NONE) 02/23/24 16:14 Hyaline Casts 0.40 /lpf 02/23/24 16:14 Urine Opiates Screen Negative ng/mL (Negative) 02/23/24 16:14 Ur Barbiturates Screen Negative ng/mL (Negative) 02/23/24 16:14 Ur Phencyclidine Scrn Negative ng/mL (Negative) 02/23/24 16:14 Ur Amphetamines Screen Negative ng/mL (Negative) 02/23/24 16:14 U Benzodiazepines Scrn Negative ng/mL (Negative) 02/23/24 16:14 Urine Cocaine Screen Negative ng/mL (Negative) 02/23/24 16:14 U Marijuana (THC) Screen Positive ng/mL (Negative) H 02/23/24 16:14 No radiology studies performed this visit Discharge Plan Discharge Patient Disposition: Home Clinical Impression: Nausea & vomiting Condition: Stable Prescriptions: New promethazine 25 mg suppository 25 mg [place] Q6H PRN (Reason: nausea and vomiting) Qty: 12 0RF ondansetron 8 mg tablet,disintegrating 8 mg PO Q6H Qty: 14 0RF Rx Instructions: Take 1/2-1 tab every 6 hours as needed for nausea and vomiting No Action albuterol sulfate 90 mcg/actuation HFA aerosol inhaler 2 inh INHALATION Q6H PRN (Reason: shortness of breath or wheezing) Qty: 8 0RF Discharge Orders: Discharge ED (Routine); Ordered 02/23/24 Ordered By: Malorie Dunham Discharge Diet: Advance as tolerated Discharge Activity: Increase activity as tolerated Patient Instructions: Acute Nausea and Vomiting (ED), Opioid Safety, Pain Management Activity Restrictions/Additional Instructions: Thank you for choosing [facility] for your healthcare needs today. Please realize this is an emergency room and that we are providing you with a medical screening exam and this may not be complete and all inclusive of all the testing and or work up that you may need to determine your ailment or severity of your illness. You have been screened and evaluated and felt safe for discharge. Health conditions do change or evolve sometimes and as such it is important that you follow up with your Primary Doctor to be re checked, 3-5 days is a general good time frame for follow up. You are always welcome to return to the ED for re assessment if your symptoms are worsening or you have new concerns Coding Level of Care Code ED Caddymaster for Maylin Min
[2024-02-23 16:14] LABS: Basophils % 0.1 %; Hematocrit 43.7 % (37-53); Lymphocytes # 1.1 10^3/uL (0.8-4.8); Lymphocytes % 7.9 %; Mean Corpuscular HGB Conc 33.9 g/dL (30-55); Mean Corpuscular Hemoglobin 30.7 pg (27-33); Mean Corpuscular Volume 90.7 fl (82-101); Mean Platelet Volume 11.4 fL (7.4-10.4); Monocytes # 0.9 10^3/uL (0.2-0.9); Monocytes % 6.9 %; Neutrophils # 11.41 10^3/uL (1.8-7.7); Neutrophils % 84.6 %; Nucleated Red Blood Cells % 0 %; Platelet Count 333 10^3/cmm (157-399); Red Blood Count 4.82 10^6/uL (3.85-5.65); Red Cell Distribution Width 13.6 % (12.1-15.1); White Blood Count 13.49 10^3/uL (3.29-11.43)
[2024-02-23 16:18] VITALS: BP 160/67; PULSE 49; RESP 16; O2SAT 96
[2024-02-23 16:23] LABS: Bilirubin Urine Negative (Negative); Blood Urine Negative (Negative); Glucose Urine UA Trace (Normal); Ketones Urine 2+ (Negative); Leukocyte Esterase Urine Negative (Negative); Nitrate Urine Negative (Negative); Protein Urine 2+ (Negative); Specific Gravity, Urine 1.027 (1.005-1.030); Urine Appearance Clear (CLEAR); Urine Color Yellow (Yellow)
[2024-02-23 16:28] LABS: Bacteria Urine None Seen /hpf; RBC Urine 0-2 /hpf (0-2); Squamous Epithelial Cell Urine 0-5 /hpf (0-5); WBC Urine 0-5 /hpf (0-5)
[2024-02-23 16:30] LABS: Amphetamines Screen Urine Negative (Negative); Barbiturates Screen Urine Negative (Negative); Benzodiazepines Screen Urine Negative (Negative); Cocaine Screen Urine Negative (Negative); Opiate Screen Urine Negative (Negative); PCP Screen Urine Negative (Negative); THC Screen Urine Positive (Negative)
[2024-02-23 16:37] LABS: Alanine Aminotransferase 17 U/L (0-41); Albumin Level 4.6 g/dL (3.5-5.2); Alkaline Phosphatase 51 U/L (40-130); Anion Gap 19.4 (5-19); Aspartate Amino Transferase 19 U/L (0-40); Blood Urea Nitrogen 12 mg/dL (6-20); Calcium 10.4 mg/dL (8.5-10.5); Carbon Dioxide 20 mmol/L (22-29); Chloride 100 mmol/L (98-107); Creatinine Clr Calc Pharmacy 111.3204; Globulin 2.8 g/dL (1.3-4.6); Glucose 143 mg/dL (65-115); Lipase 43 U/L (13-60); Osmolality Calculated 284 mOsm/kg (285-295); Potassium 3.4 mmol/L (3.5-5.1); Sodium 136 mmol/L (136-145); Total Bilirubin 1.5 mg/dL (0.15-1.2); Total Protein 7.4 g/dL (6.6-8.7)
[2024-02-23 17:00] VITALS: BP 154/71; PULSE 66; RESP 16; O2SAT 94
[2024-02-23] MEDS: prochlorperazine 10 mg/2 mL Inj IVP (17:15)
[2024-02-23] MEDS: diphenhydrAMINE 50 mg/mL SDV 1mL IVP (17:15)
[2024-02-23 18:45] VITALS: BP 148/75; PULSE 60; RESP 16; O2SAT 100
== END 2024-02-23 17:58 | disposition home or self-care (01) ==
PROVIDERS: Emergency Medicine; Emergency Provider Emergency Medicine
DX: R11.2 Nausea with vomiting, unspecified (principal); Z87.891 Personal history of nicotine dependence
CPT/HCPCS: 80053; 80306; 81001; 83690; 85025; 96374; 96375; 96376; 99284; J0780; J1200; J2405

== ENCOUNTER 2024-02-25 00:29 | Emergency (ER) | payer SELFPAY ==
[2024-02-25 00:38] VITALS: BP 163/97; PULSE 53; RESP 18; TEMP 36.4; O2SAT 99
[2024-02-25] MEDS: sodium chloride 0.9% 1,000 ML 999 ML IV (01:57)
[2024-02-25 02:06] LABS: Basophils % 0.4 %; Eosinophils % 0.3 %; Hematocrit 45.4 % (37-53); Lymphocytes # 1.4 10^3/uL (0.8-4.8); Lymphocytes % 12.2 %; Mean Corpuscular HGB Conc 34.6 g/dL (30-55); Mean Corpuscular Hemoglobin 30.4 pg (27-33); Mean Platelet Volume 11.4 fL (7.4-10.4); Monocytes # 0.8 10^3/uL (0.2-0.9); Monocytes % 7.1 %; Neutrophils # 8.82 10^3/uL (1.8-7.7); Neutrophils % 79.6 %; Nucleated Red Blood Cells % 0 %; Platelet Count 295 10^3/cmm (157-399); Red Blood Count 5.16 10^6/uL (3.85-5.65); Red Cell Distribution Width 13.2 % (12.1-15.1); White Blood Count 11.06 10^3/uL (3.29-11.43)
[2024-02-25 02:20] LABS: Alanine Aminotransferase 19 U/L (0-41); Albumin Level 4.4 g/dL (3.5-5.2); Alkaline Phosphatase 46 U/L (40-130); Anion Gap 15.4 (5-19); Aspartate Amino Transferase 19 U/L (0-40); Blood Urea Nitrogen 18 mg/dL (6-20); C Reactive Protein 4.8 mg/L (0.0-4.9); Calcium 9.7 mg/dL (8.5-10.5); Carbon Dioxide 25 mmol/L (22-29); Chloride 100 mmol/L (98-107); Creatinine Clr Calc Pharmacy 81.7473; Globulin 2.9 g/dL (1.3-4.6); Glomerular Filtration Rate 62.4 mL/min (90-130); Glucose 125 mg/dL (65-115); Lipase 52 U/L (13-60); Osmolality Calculated 287 mOsm/kg (285-295); Potassium 3.4 mmol/L (3.5-5.1); Sodium 137 mmol/L (136-145); Total Bilirubin 1.7 mg/dL (0.15-1.2); Total Protein 7.3 g/dL (6.6-8.7)
[2024-02-25 02:21] LABS: Lactic Sepsis W/Reflex 1.6 mmol/L (0.5-2.2)
[2024-02-25] MEDS: haloperidol inj 5 mg/mL INJ 1 mL IVP (02:38)
[2024-02-25] MEDS: ondansetron 2 mg/ML SDV 2 mL 4 MG IVP ×2 (02:41→03:58)
--- NOTE | 2024-02-25 02:50 | ED_ITS ---
HPI - Nausea/Vomiting/Diarrhea 2 General: Chief complaint: Nausea/Vomiting/Diarrhea Stated complaint: n/v fever Time Seen by Provider: 02/25/24 02:17 History of Present Illness: 58-year-old male with over a week of sarah sea and vomiting he says. He says he feels febrile, but fever does not seem to register. Generalized belly pain on and off. He has not had much diarrhea, but has not been able to hold down food. He was seen 2 days ago, and prescribed antiemetics, but he says they do not seem to be helping. Multiple episodes of vomiting today. He presents vomiting here. Related Data Previous Rx's Medication Instructions Recorded albuterol sulfate 90 mcg/actuation 2 inh inhalation Q6H PRN shortness 07/08/22 aerosol inhaler of breath or wheezing #8 grams ondansetron 8 mg disintegrating 8 mg PO Q6H #14 tabs 02/23/24 tablet promethazine 25 mg rectal 25 mg [place] Q6H PRN nausea and 02/23/24 suppository vomiting #12 ea chlorpromazine 25 mg tablet 25 mg PO TID #20 tabs 02/25/24 Allergies Allergy/AdvReac Type Severity Reaction Status Date / Time No Known Allergies Allergy Verified 02/25/24 00:41 [facility] ED 2 PFSH: Medical History No pertinent past medical history Social History (Updated 07/08/22 @ 04:12 by Tiffanie Lin MD) Smoking and tobacco/nicotine status: former use of tobacco/nicotine Physical Exam 2 Const: COMMON NORMALS: no acute distress GENERAL APPEARANCE: cooperative and ill appearing (Mildly); not frail appearing HENMT: COMMON NORMALS: normocephalic, atraumatic and Normal external nose present HEAD & SCALP: normocephalic and atraumatic FACE & SINUS: normal facial exam and face symmetric NOSE: Normal external nose present Eye: COMMON NORMALS: Equal, round and reactive pupils present and EOMs intact bilaterally PUPIL: Yes Equal, round and reactive pupils present Neck/C-Spine: GENERAL: Yes trachea midline Chest: CHEST: Yes Symmetrical chest wall rise Resp: COMMON NORMALS: normal respiratory effort, No retractions, No use of accessory muscles and clear to auscultation bilaterally AUSCULTATION: clear to auscultation bilaterally Cardio: COMMON NORMALS: regular rate and regular rhythm RATE: regular rate RHYTHM: regular rhythm GI: COMMON NORMALS: Normal to inspection, nondistended, normoactive bowel sounds present Extremity: COMMON NORMALS: no pedal edema Neuro: URSULA COMA SCALE: document GCS findings Ursula coma scale eye opening: Spontaneous Ursula coma scale verbal response: Orientated Ursula coma scale motor response: Obey commands [place] coma scale total score: 15 S ENSORY EXAM: Yes extremities (intact) Psych: COMMON NORMALS: speech normal SPEECH: Yes normal speech Skin: COMMON NORMALS: no rashes or lesions noted GENERAL SKIN EXAM: no rashes or lesions noted Course 2 Vital Signs: Vital signs: Vital Signs Temperature 97.5 F L 02/25/24 00:38 Pulse Rate 50 L 02/25/24 04:14 Respiratory Rate 18 02/25/24 04:14 Blood Pressure 163/97 02/25/24 00:38 Pulse Oximetry 96 02/25/24 04:14 Oxygen Delivery Me thod Room Air 02/25/24 04:00 MDM - Nausea/Vomiting/Diarrhea Medical Decision Making Patient presents retching in the room. He is given Zofran and Haldol with good effect. His CBC is normal. His BMP is not remarkable. His lactic acid is 1.6. His bilirubin is 1.7 but other liver enzymes are normal. His CRP is only 4.8. He has a history of multiple episodes. He is a marijuana smoker. 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 With improvement he will be allowed DC. Scheduled thorazine for 48h. Prn to follow for nausea. To avoid marijuana. Outpt follow up. return for worsening symptoms, fever, etc. Lab Data 02/25/24 01:55 02/25/24 01:55 Laboratory Results WBC 11.06 10^3/uL (3.29-11.43) 02/25/24 01:55 RBC 5.16 10^6/uL (3.85-5.65) 02/25/24 01:55 Hgb 15.70 g/dL (11.27-16.99) 02/25/24 01:55 Hct 45.4 % (37-53) 02/25/24 01:55 MCV 88.0 fl (82-101) 02/25/24 01:55 MCH 30.4 pg (27-33) 02/25/24 01:55 MCHC 34.6 g/dL (30-55) 02/25/24 01:55 RDW 13.2 % (12.1-15.1) 02/25/24 01:55 Plt Count 295 10^3/cmm (157-399) 02/25/24 01:55 MPV 11.4 fL (7.4-10.4) H 02/25/24 01:55 Neut % (Auto) 79.6 % 02/25/24 01:55 Lymph % (Auto) 12.2 % 02/25/24 01:55 [place] % (Auto) 7.1 % 02/25/24 01:55 Eos % (Auto) 0.3 % 02/25/24 01:55 Baso % (Auto) 0.4 % 02/25/24 01:55 Neut # (Auto) 8.82 10^3/uL (1.8-7.7) H 02/25/24 01:55 Lymph # (Auto) 1.4 10^3/uL (0.8-4.8) 02/25/24 01:55 [place] # (Auto) 0.8 10^3/uL (0.2-0.9) 02/25/24 01:55 Eos # (Auto) 0.0 10^3/uL (0.0-0.8) 02/25/24 01:55 Baso # (Auto) 0.0 10^3/uL (0.0-0.1) 02/25/24 01:55 Nucleated RBC % (auto) 0 % 02/25/24 01:55 Nucleated RBCs # 0.0 /100WBC 02/25/24 01:55 Sodium 137 mmol/L (136-145) 02/25/24 01:55 Potassium 3.4 mmol/L (3.5-5.1) L 02/25/24 01:55 Chloride 100 mmol/L (98-107) 02/25/24 01:55 Carbon Dioxide 25 mmol/L (22-29) 02/25/24 01:55 Anion Gap 15.4 (5-19) 02/25/24 01:55 BUN 18 mg/dL (6-20) 02/25/24 01:55 Creatinine 1.2 mg/dL (0.7-1.2) 02/25/24 01:55 GFR Calculation 62.4 mL/min (90-130) L 02/25/24 01:55 Glucose 125 mg/dL (65-115) H 02/25/24 01:55 Calculated Osmolality 287 mOsm/kg (285-295) 02/25/24 01:55 Lactic Acid 1.6 mmol/L (0.5-2.2) 02/25/24 01:55 Calcium 9.7 mg/dL (8.5-10.5) 02/25/24 01:55 Total Bilirubin 1.7 mg/dL (0.15-1.2) H 02/25/24 01:55 AST 19 U/L (0-40) 02/25/24 01:55 ALT 19 U/L (0-41) 02/25/24 01:55 Alkaline Phosphatase 46 U/L (40-130) 02/25/24 01:55 C-Reactive Protein 4.8 mg/L (0.0-4.9) 02/25/24 01:55 Total Protein 7.3 g/dL (6.6-8.7) 02/25/24 01:55 Albumin 4.4 g/dL (3.5-5.2) 02/25/24 01:55 Globulin 2.9 g/dL (1.3-4.6) 02/25/24 01:55 Lipase 52 U/L (13-60) 02/25/24 01:55 No radiology studies performed this visit Discharge Plan Discharge Patient Disposition: Home Clinical Impression: Nausea & vomiting, Cyclic vomiting syndrome Condition: Stable Prescriptions: New chlorpromazine 25 mg tablet 25 mg PO TID Qty: 20 0RF No Action albuterol sulfate 90 mcg/actuation HFA aerosol inhaler 2 inh INHALATION Q6H PRN (Reason: shortness of breath or wheezing) Qty: 8 0RF promethazine 25 mg suppository 25 mg [place] Q6H PRN (Reason: nausea and vomiting) Qty: 12 0RF ondansetron 8 mg tablet,disintegrating 8 mg PO Q6H Qty: 14 0RF Rx Instructions: Take 1/2-1 tab every 6 hours as needed for nausea and vomiting Discharge Orders: Discharge ED (Routine); Ordered 02/25/24 Ordered By: Cory Bazan Patient Instructions: Cyclic Vomiting Syndrome (ED), Opioid Safety, Pain Management Activity Restrictions/Additional Instructions: Medication as directed. Take it scheduled for the next 48 hours whether you are feeling nauseated or not, then you may use as needed. Return for fever greater than 100, vomiting despite medication, other concerning symptoms. Stand Alone Forms: Work/School Release Coding Level of Care Code ED Television Schedule Coordinator for Maylin Min
[2024-02-25 03:48] VITALS: PULSE 50; O2SAT 96
[2024-02-25 04:00] VITALS: PULSE 61; RESP 18; O2SAT 96
[2024-02-25 04:14] VITALS: PULSE 50; RESP 18; O2SAT 96
== END 2024-02-25 04:28 | disposition home or self-care (01) ==
PROVIDERS: Emergency Provider Emergency Medicine
DX: R11.15 Cyclical vomiting syndrome unrelated to migraine (principal); Z87.891 Personal history of nicotine dependence
CPT/HCPCS: 36415; 80053; 83605; 83690; 85025; 86140; 96374; 96375; 96376; 99284; J1630; J2405; J7030

== ENCOUNTER → 2024-07-11 14:03 | Outpatient (BNVA) | payer OTHER, SELFPAY | PROVIDERS: PCP Family Medicine; Visit Provider Family Medicine | DX: Z13.6 Encounter for screening for cardiovascular disorders (principal); Z12.5 Encounter for screening for malignant neoplasm of prostate; M17.11 Unilateral primary osteoarthritis, right knee | CPT/HCPCS: 73562; 80053; 80061; 84153; 84439; 84443; 85025 ==

== ENCOUNTER → 2025-01-13 14:15 | Outpatient (BNVA) | payer MEDICAID, SELFPAY | PROVIDERS: PCP Family Medicine | DX: R52 Pain, unspecified (principal) | CPT/HCPCS: 87400; 87426 ==